=== PATIENT | female | born 1940 | race African-American/Black ===

== ENCOUNTER 2017-01-19 12:53 | Observation (INO) | payer MEDICARE ==
[~2017-01-19] VITALS: Ht 160 cm; Wt 84.1 kg
--- NOTE | ~2017-01-19 | HEMODYNAMI ---
PATIENT:MAURY SAMUELS MEDICAL RECORD: [id number] : 42 LOCATION:[facility].2116 ADMISSION DATE: 01/19/17 Generatedon:01/21/20178:30 Patient name: MAURY SAMUELS Patient #: [id number] SSN: DO B: 1940 Date of study: 01/21/2017 Page: Of Hemodynamic Procedure Report Patient Data Patient Demographics Procedure consent was obtained First Name: MAURY Gender: Female Last Name: ARVIND : 1940 Patient #: [id number] Age: 76 year(s) Race: Black Additional ID: [id number] Contact details Address: [address] [place] [address] State: [place] City: [facility] Zip code: [address] Past Medical History Allergies: No known allergies Admission Admission Data Admission Date: 01/19/2017 Admission Time: 14:52 Room #: D2116 Procedure Procedure Types Cath Procedure Diagnostic Procedure [facility] w/Coronaries Aortic Root Angiography Miscellaneous Procedures Moderate Sedation up to 15 minutes Procedure Description Procedure Date Procedure Date: 01/21/2017 Procedure Start Time: 8:09 Procedure End Time: 8:29 Procedure Staff Name Function Cain Paul MD Performing Physician Nadya Mckeon RN Nurse Malcolm Florence RT Monitor Braden Loza RT Scrub Procedure Data Cath Procedure Fluoroscopy Diagnostic fluoroscopy Total fluoroscopy Time: 4.3 time: 4.3 min min Diagnostic fluoroscopy Total fluoroscopy dose: 921 dose: 921 mGy mGy Contrast Material Contrast Material Type Amount (ml) Isovue 300 127 Entry Location Entry Primary Successful Side Size Upsize Upsize Entry Closure Succes sful Closure Location (Fr) 1 (Fr) 2 (Fr) Remarks Device Remarks Femoral Right 5 Fr Exoseal artery Estimated blood loss: 10 ml Diagnostic catheters Device Type Used For End Catheter Placement Cordis 5Fr JL 4.0 Procedure Catheter (MP) Cordis 5Fr 3DRC Catheter Procedure (MP) Diagnostic Infinity 5Fr Procedure AR 1 MOD catheter Cordis 5Fr Pigtail Procedure Catheter (MP) Procedure Complications No complications Procedure Medications Medication Administration Route Dosage Oxygen NC 2 l/min Heparin Flush Bag added to field 2 bags (1000units/500ml NS) Lidocaine 2% added to field 20 Versed I.V. 1 mg Fentanyl I.V. 50 mcg Hemodynamics Rest Heart Rate: 97 (bpm) Pressure Samples Time Site Value (mmHg) Purpose Heart Use Rate(bpm) 8:12 AO 89/49(70) Snapshot 26 8:21 LV 108/-15,4 Snapshot 87 8:22 AO 106/51(75) Pullback 88 8:22 LV 121/0,15 Pullback 88 Gradients Valve Time Site 1 Site 2 Mean SEP/DFP Peak To Heart Use (mmHg) (sec/min) Peak Rate (mmHg) (bpm) Aortic 8:22 LV AO 8 24 15 88 121/0,15 106/51(75) Calculations Valve P-P Mean Valve Index Valve Source Name Gradient Area Flow (cm2) Aortic 15 8 15 8 Snapshots Pre Cath Intra NCS Post Cath Vital Signs Time Heart Resp SPO2 etCO2 [id number] NIBP (mmHg) Rhythm Pain Sedation Rate (ipm) (%) (mmHg) (mmHg) Status Level (bpm) 7:52:34 99 19 94 0 0 119/79(107) NSR 0 (11) 10(A) , No pain 7:56:33 98 17 94 0 0 121/89(107) NSR 0 (11) 10(A) , No pain 8:00:31 95 16 96 0 0 127/91(114) NSR 0 (11) 10(A) , No pain 8:04:32 93 16 98 0 0 136/86(105) NSR 0 (11) 10(A) , No pain 8:08:42 92 23 100 0 0 104/73(87) NSR 0 (11) 9(A) , No pain 8:12:44 91 23 99 0 0 97/66(82) NSR 0 (11) 9(A) , No pain 8:16:42 92 18 99 0 0 90/70(84) NSR 0 (11) 9(A) , No pain 8:20:35 91 22 98 0 0 97/71(88) NSR 0 (11) 9(A) , No pain 8:24:33 85 15 96 0 0 110/70(89) NSR 0 (11) 9(A) , No pain 8:27:35 85 17 98 0 0 117/73(88) NSR 0 (11) 9(A) , No pain Medications Time Medication Route Dose Verified Delivered Reason Notes Effect iveness by by 8:01:35 Oxygen NC 2 Cain Nadya Per l/min Humberto Mckeon RN physician 8:01:45 Heparin Flush added 2 Cain Cain used for Bag to bags Humberto Paul MD procedure (1000units/500ml field NS) 8:01:53 Lidocaine 2% added 20ml Cain Cain used for to vial Humberto aPul MD procedure field 8:05:58 Versed I.V. 1 mg Cain Nadya for Humberto Mckeon RN sedation 8:06:08 Fentanyl I.V. 50 Cain Nadya for mcg Humberto Mckeon RN sedation Procedure Log Time Note 7:33:07 Leilani Counts RT(R) sent for patient. Start room use. 7:33:08 Time tracking: Regular hours 7:33:11 Plan of Care:Hemodynamics will remain stable., Cardiac rhythm will remain stable., Comfort level will be maintained., Respiratory function will remain adequate., Patient/ family verbilizes understanding of procedure., Procedure tolerated without complication., Recovers from procedure without complications.. 7:45:04 Patient received from Med II to CCL 1 Alert and oriented. Tansferred to table in Supine position. 7:45:05 Warm blankets applied, and alex hugger turned on for patient comfort. 7:45:05 Correct patient and procedure confirmed by team. 7:45:09 Signed procedure consent form obtained from patient. 7:45:11 ECG and BP/O2 sat monitors applied to patient. 7:51:26 Vital chart was started 7:51:27 Full Disclosure recording started 7:51:31 Rhythm: sinus rhythm 7:51:50 H&P Date Dictated: 01/20/2017 Within 30 days and on chart.. 7:51:52 Pre-procedure instructions explained to patient. 7:51:52 Pre-op teaching completed and patient verbalized understanding. 7:51:55 Family in patients room. 7:51:59 Patient NPO since Midnight. 7:52:07 Patient allergic to No known allergies 7:52:10 Is the patient allergic to Iodine/contrast media? No. 7:53:33 Is patient on blood thinner?No 7:53:39 ACC The patient was administered the following blood thiners within the last 24 hours: ACCHeparin 7:54:13 Patient diabetic? No. 7:54:20 Previous problem with sedation/anesthesia? No ? 7:54:22 Snore? Yes 7:54:34 Sleep apnea? No 7:54:36 Deviated septum? No 7:54:37 Opens mouth fully? Yes 7:54:38 Sticks out tongue? Yes 7:54:39 Airway obstruction? No ? 7:54:42 Dentures? Yes ? 7:54:59 Pre procedure: right dorsailis pedis pulse 1+ Palpable, but thready & weak; easily obliterated 7:55:00 PT HAS A RESERVE LEFT ARM 7:55:07 Patient pain scale 0/10 ?. 7:55:18 IV patent on arrival in right forearm with 0.9% NaCl at KVO. 7:55:30 Heparin Dc'd upon arrival to the Health Care Technician. 7:57:07 Lab results completed and on chart. 7:57:10 Right groin area was prepped with chlora-prep and draped in sterile fashion 7:57:15 Alarms reviewed by R. N. 7:57:16 Sharps counted by scrub and verified by R.N. 7:57:24 Use device set Femoral Dx 7:57:25 Acist Syringe opened to sterile field. 7:57:26 Bag Decanter opened to sterile field. 7:57:26 Medline Cath Pack opened to sterile field. 7:57:28 Acist Hand Control opened to sterile field. 7:57:28 Acist Manifold opened to sterile field. 7:57:30 Tegaderm 4 x 4 opened to sterile field. 7:59:49 Baseline sample Acquired. 8:01:35 Oxygen 2 l/min NC was administered by Nadya Mckeon RN; Per physician; 8:01:45 Heparin Flush Bag (1000units/500ml NS) 2 bags added to field was administered by Cain Paul MD; used for procedure; 8:01:53 Lidocaine 2% 20ml vial added to field was administered by Cain Paul MD; used for procedure; 8:04:11 --------ALL STOP TIME OUT------ 8:04:12 Final Timeout: patient, procedure, and site verified with staff and physician. All members of the team are in agreement. 8:04:14 Right groin site verified by team. 8:04:18 Physical assessment completed. ASA score P 2 - A patient with mild systemic disease as per Cain Paul MD. 8:04:21 Sedation plan: IV Moderate Sedation Versed, Fentanyl 8:05:58 Versed 1 mg I.V. was administered by Nadya Mckeon RN; for sedation; 8:06:05 Terumo 5Fr Carriere Sheath opened to sterile field. 8:06:07 St Chirag 260cm J .035 wire opened to sterile field. 8:06:08 Fentanyl 50 mcg I.V. was administered by Nadya Mckeon RN; for sedation; 8:06:08 Diagnostic Infinity 5Fr Multipack catheter opened to sterile field. 8:09:19 Zero performed for pressure channel P1 8:09:21 Zero performed for pressure channel P1 8:09:24 Zero performed for pressure channel P1 8:09:29 Procedure started. 8:09:32 Local anesthetic to right femoral artery with Lidocaine 2% by Cain Paul MD.INITIAL ACCESS ONLY 8:11:45 A 5 Fr sheath was inserted into the Right Femoral artery 8:12:15 A Cordis 5Fr JL 4.0 Catheter (MP) was advanced over the wire and used for Procedure. 8:12:39 LCA angiography performed. 8:14:17 Catheter exchanged over wire. 8:14:27 A Cordis 5Fr 3DRC Catheter (MP) was advanced over the wire and used for Procedure. 8:17:06 Catheter exchanged over wire. 8:17:24 A Diagnostic Infinity 5Fr AR 1 MOD catheter was advanced over the wire and used for Procedure. 8:18:57 RCA angiography performed. 8:19:22 Catheter exchanged over wire. 8:19:42 A Cordis 5Fr Pigtail Catheter (MP) was advanced over the wire and used for Procedure. 8:21:39 LV angiography performed. 8:21:50 LV gram done using RIVERA 8:21:59 EF : 55 % 8:22:01 LV hemodynamics recorded. 8:22:04 Injector settings: Ml/sec: 10, Volume: 20, 8:22:43 Aortic Root visualized 8:22:47 Injector settings: Ml/sec: 15, Volume: 30, 8:24:30 Catheter removed. 8:24:40 Cordis 5Fr Exoseal opened to sterile field. 8:24:53 Sheath removed intact; hemostasis achieved with Exoseal to the Right Femoral artery. 8:24:55 Procedure ended.(Physican Out) 8:25:08 Fluoroscopy time 04.30 minutes. 8:25:12 Fluoroscopy dose: 921 mGy 8:25:12 Flurop Dose total: 921 8:25:18 Contrast amount:Isovue 300 127ml. 8:25:21 Sharps counted by scrub and verified by R.N. 8:25:25 Insertion/operative site no bleeding no hematoma. 8:25:38 Post-op/insertion site Right Femoral artery dressed using a 4 x 4 and Tegaderm. 8:25:40 Post Procedure Pulses reassessed and unchanged 8:25:46 Post-procedure physical assessment completed. ASA score P 2 - A patient with mild systemic disease as per Cain Paul MD. 8:25:50 Post procedure rhythm: unchanged. 8:25:53 Estimated blood loss: 10 ml 8:26:03 Post procedure instruction explained to patient.Patient verbalizes understanding. 8:26:04 Patient needs reinforcement of post procedure teaching. 8:26:41 Procedure type changed to Cath procedure, Diagnostic procedure, LHC, LHC w/Coronaries, Aortic Root Angiography, Miscellaneous Procedures, Moderate Sedation up to 15 minutes 8:26:46 Procedure Complication : No complications 8:27:13 Procedure and supply charges have been captured, reviewed, submitted and are correct. 8:29:23 Vital chart was stopped 8:29:24 See physician's report for complete and final results. 8:29:28 Report given to PCU. 8:29:46 Patient transfered to PCU with Bed. 8:29:52 Procedure ended. 8:29:52 Full Disclosure recording stopped 8:29:56 End room use (Document Last) Device Usage Item Name Manufacture Quantity Catalog Hospital Part Current Minimal Lo t# / Number Charge Number Stock Stock Serial# Code Acist Acist 1 17962 735205 378329 902624 20 GL 2ours Inc Bag Microtek 1 2002S 673115 40751 904159 5 [employer] Inc. Medline Cardinal 1 [id number] 903025 44850 705938 5 Cath Pack Health Acist Hand Acist 1 40589 495785 806219 245706 5 Control Medical Systems Inc Acist Acist 1 99776 347625 867675 567666 5 Manifold Medical Systems Inc Tegaderm 4 3M 1 1626W 049437 911708 932141 5 x 4 Terumo 5Fr Terumo 1 [id number] 114234 563449 864350 [address] Chirag 1 318575 616012 581596 995001 30 260cm J .035 wire Diagnostic Cardinal 1 QU4256 551342 58937 575376 30 Infinity Health 5Fr Multipack catheter Cordis 5Fr Cardinal 1 915298 5 JL 4.0 Health Catheter (MP) Cordis 5Fr Cardinal 1 140811 5 3DRC Health Catheter (MP) Diagnostic Cardinal 1 [id number] 369043 366600 040703 15 Infinity Health 5Fr AR 1 MOD catheter Cordis 5Fr Cardinal 1 099966 5 Pigtail Health Catheter (MP) Cordis 5Fr Cardinal 1 EX500 676280 763187 9[address]10 10 Dr[address] TATTOFF Signature Audit [place] Stage Time Signature Unsigned Intra-Procedure 01/21/2017 Malcolm Florence 8:30:14 AM RT(R) Signatures Monitor : Malcolm Florence RT Signature : Date : Time : [address] [place] [address]
[~2017-01-19 12:53] MED LIST: CALAN SR240 MG PO; VITAMIN D3400 UNI1 PO; VOLTAREN75 MG PO
[2017-01-19 13:39] LABS: BASOPHILS 0.3 % (0-2); EOSINOPHILS 0.7 % (0-7); HEMATOCRIT 41.6 % (36.0-48.0); HEMOGLOBIN 13.9 g/dL (12-16); IMMATURE GRANULOCYTES 0.3 % (0-5); LYMPHOCYTES 15.1 % (15-50); MCH 29.4 pg (26.0-34.0); MCHC 33.4 g/dL (31.0-37.0); MCV 87.9 fL (80.0-100.0); MONOCYTES 5.3 % (2-11); NEUTROPHILS 78.3 % (40-80); PLATELET COUNT 271 10x3/uL (130-400); RBC 4.73 10x6/uL (4.00-5.40); RDW 14.5 % (11.5-14.5); WBC 7.2 10x3/uL (4.8-10.8)
[2017-01-19 13:55] LABS: ALBUMIN 3.7 g/dL (3.4-5.0); ALKALINE PHOSPHATASE 99 U/L (46-116); ALT (SGPT) 23 U/L (10-68); BILIRUBIN - TOTAL 0.43 mg/dL (0.2-1.3); CALC OSMOLALITY 281 mosm/kg (275-300); CALCIUM 9.5 mg/dL (8.5-10.1); CARBON DIOXIDE 30.3 mmol/L (21.0-32.0); CHLORIDE - SERUM 103 mmol/L (98-107); GLUCOSE 132 mg/dL (74-106); POTASSIUM - SERUM 3.9 mmol/L (3.5-5.1); PROTEIN - SERUM 8.4 g/dL (6.4-8.2); SODIUM 140 mmol/L (136-145); UREA NITROGEN 14 mg/dL (7-18); eGFR NON AFRICAN AMERICAN 57 mL/min (90-120)
[2017-01-19 14:06] LABS: CHOL - HDL RATIO 4.2 ratio (2.3-4.1); CHOLESTEROL, TOTAL 241 mg/dL (0-200); CKMB 2.8 U/L (0.0-3.6); CREATINE KINASE 224 UL (21-215); HDL CHOLESTEROL 57 mg/dL (32-96); LDL CHOLESTEROL 167 mg/dL (0-100); LDL-HDL RATIO 2.9 ratio (1.5-3.5); TRIGLYCERIDE 86 mg/dL (30-200)
[2017-01-19 14:09] LABS: MAGNESIUM - SERUM 1.9 mg/dL (1.8-2.4)
[2017-01-19 15:32] LABS: TROPONIN-I 0.132 ng/mL (0.000-0.060)
--- NOTE | 2017-01-19 17:10 | NUR ---
TRANSFER FROM ER BY STRETCHER. OREINTED TO ROOM. CALL LIGHT IN REACH. WILL CONT. PLAN OF CARE.
[2017-01-19 17:23] VITALS: BP 141/85; BP 189/87; Ht 160 cm; Wt 84.1 kg
[2017-01-19 20:00] VITALS: BP 158/79
[2017-01-19 22:21] LABS: CKMB 35.8 U/L (0.0-3.6)
[2017-01-19 22:25] LABS: CREATINE KINASE 529 UL (21-215); TROPONIN-I 2.274 ng/mL (0.000-0.060)
[2017-01-20] VITALS: BP 151/88
[2017-01-20 04:43] LABS: CKMB 68.5 U/L (0.0-3.6)
[2017-01-20 05:04] LABS: CREATINE KINASE 899 UL (21-215); TROPONIN-I 5.029 ng/mL (0.000-0.060)
[2017-01-20 06:55] LABS: BASOPHILS 0.4 % (0-2); EOSINOPHILS 1.3 % (0-7); HEMATOCRIT 41.5 % (36.0-48.0); HEMOGLOBIN 13.6 g/dL (12-16); IMMATURE GRANULOCYTES 0.2 % (0-5); MCH 28.9 pg (26.0-34.0); MCHC 32.8 g/dL (31.0-37.0); MCV 88.3 fL (80.0-100.0); MEAN PLATELET VOLUME 10.9 fL (7.4-10.4); MONOCYTES 7.9 % (2-11); NEUTROPHILS 68.2 % (40-80); PLATELET COUNT 256 10x3/uL (130-400); RDW 14.7 % (11.5-14.5); WBC 8.2 10x3/uL (4.8-10.8)
[2017-01-20 07:02] LABS: APTT 24.2 SECONDS (22.8-39.4); INR 1.01 (0.85-1.17); PROTIME 13.2 SECONDS (11.6-15.0)
[2017-01-20 07:14] LABS: ANION GAP 12.7 mmol/L (8-16); CALCIUM 9.3 mg/dL (8.5-10.1); CARBON DIOXIDE 28.3 mmol/L (21.0-32.0); CREATININE - SERUM 0.9 mg/dL (0.6-1.3)
[2017-01-20 08:00] VITALS: BP 162/76
--- NOTE | 2017-01-20 09:34 | NUR ---
TELEMETRY SR. HEPRIN GTT INFUSING. CALL LIGHT IN REACH. WILL CONT. PLAN OF CARE.
--- NOTE | 2017-01-20 09:50 | NUR ---
CONSENTS SIGNED FOR [facility].
--- NOTE | 2017-01-20 14:20 | NUR ---
HEPRIN GTT STOPPED X 30 MIN AND RESTARTED AT 800 UNITS/HR.
[2017-01-20 16:00] VITALS: BP 173/95
--- NOTE | 2017-01-20 19:21 | NUR ---
PT C/O CHEST PAIN/PRESSURE - NOTED THAT PT DID NOT RECEIVE HER NTG PATCH THIS AM. NTG PATCH APPLIED AT THIS TIME AND WILL RE-EVALUATE HER PAIN
--- NOTE | 2017-01-20 20:55 | NUR ---
PTT RESULTS - 74. NO CHNAGE MADE PER HEPARIN NOMOGRAM. NEXT PTT DUE AT 0600. PT DOES C/O HEADACHE. RELATES NO FURTHER CHEST PAIN. TYLENOL 650 MG PO TO BE GIVEN. WILL MONITOR.
[2017-01-20 22:11] VITALS: BP 160/94
[2017-01-21 00:52] VITALS: BP 147/109
[2017-01-21 04:38] VITALS: BP 146/96
[2017-01-21 06:19] LABS: HEMATOCRIT 41.6 % (36.0-48.0); HEMOGLOBIN 13.8 g/dL (12-16); MCH 29.1 pg (26.0-34.0); MCHC 33.2 g/dL (31.0-37.0); MCV 87.8 fL (80.0-100.0); MEAN PLATELET VOLUME 11.5 fL (7.4-10.4); RBC 4.74 10x6/uL (4.00-5.40); RDW 14.5 % (11.5-14.5)
[2017-01-21] MEDS ORDERED: ISOSORBIDE MONO30 M1 PO (11:45)
[2017-01-21] MEDS ORDERED: PRAVACHOL20 MG PO (11:59)
--- NOTE | 2017-01-21 14:00 | NUR ---
REVIEWED DISCHARGE INSTRUCTIONS WITH PT AND BOTH STATE UNDERSTANDING COPY GIVEN SALINE LOCK TO RAC DCD WITH IV CATHETER INTACT SITE WNL DCD HOME IN STABLE CONDITION VIA W/C WITH ALL PERSONAL BELONGINGS
--- NOTE | 2017-01-24 10:59 | OP ---
PATIENT NAME: MAURY SAMUELS MEDICAL RECORD: [id number] :42 LOCATION:[facility]2116 ADMISSION DATE:01/19/17 SURGEON: DAVI MOORE M.D. DATE OF OPERATION: 01/21/2017 PROCEDURES PERFORMED: 1. Selective coronary angiography. 2. Left heart catheterization with ventriculogram. 3. Aortic root injection. 4. Left heart catheterization with ventriculogram. INDICATION: A 76-year-old woman, who presents with symptoms of chest discomfort and positive cardiac enzymes. EQUIPMENT USED: A 5-American JL4, Jose right, pigtail catheter. TECHNIQUE: A 5-American sheath was inserted in retrograde fashion in the right common femoral artery. Next, selective coronary angiography was performed in standard 5-American JL4 and Jose right. Left heart catheterization was performed using pigtail catheter. A pigtail catheter was then pulled back in the ascending aorta to visualize the aortic root. CORONARY ANATOMY: 1. Left main: Left main trunk is a quite large in caliber. There appears to be an 89 mm vessel. It has no obstruction. 2. LAD: This vessel is large in caliber. It appears to be ectatic in the proximal segment. Again, representing a 6-7 mm vessel. The midvessel is more moderate caliber around 3 mm in diameter. It is a smooth-walled vessel and angiographically normal. 3. Circumflex: This vessel is moderate in caliber. It is a smooth-walled vessel and angiographically normal. 4. Right coronary: This vessel actually arises alow in the right coronary sinus. It is quite large and ectatic. It appears to be 8 mm in diameter. It is a smooth-walled and has no obstruction. It is angiographically normal. It does provide a large PDA and posterolateral branch in distal segment. 5. Left ventricle: Left ventricle appears normal in size and function. No wall motion abnormalities are seen. Its ejection fraction is 55% to 60%. 6. Ascending aorta. The ascending aorta appears to be dilated from the sinus of Valsalva up to the great vessels. The aorta appears to be at least 4 cm. I do not see any aortic insufficiency. There is no aortic stenosis. IMPRESSION: 1. Normal coronary arteries, although they are quite ectatic and large. There is no evidence of any thrombus or obstruction. 2. Normal left ventricular function. RECOMMENDATIONS: I am not sure why troponin and CK are elevated. Her ejection fraction was normal and coronary arteries are normal as well. Clinically, she does not appear to have myocarditis. I am not sure if she is having some component of vasospasm or vessels. We will likely start her on nitrates in addition to her calcium blockers. TRANSINT:[id number] Voice Confirmation ID: [id number] DOCUMENT ID: [id number] OPERATIVE REPORT [id number] MAURY SAMUELS TIMOTHY E M.D. at 1059 CC: [id number] DICTATION DATE: 01/21/17 08 OCCUPANCY SPECIALIST: 01/21/17 0932 DIS IN 01/21/17 [facility] [address] [place] [address]
--- NOTE | 2017-01-24 10:59 | EC ---
PATIENT:MAURY SAMUELS DATE OF SERVICE: 01/19/17 SEX: F MEDICAL RECORD: [id number] DATE OF : 42 LOCATION:D. D.211 AGE OF PATIENT: 76 ADMISSION DATE: 01/19/17 REFERRING PHYSICIAN: INTERPRETING PHYSICIAN: DAVI PAUL M.D. ECHOCARDIOGRAM REPORT ECHO CHARGES 4 ECHO COMPLETE CLINICAL DIAGNOSIS: NON Q [place] ECHOCARDIOGRAPHIC MEASUREMENTS (adult normal given) AC root (d.<3.7cm) 2.7 LV Septum d (<1.2 cm> 1.7 Valve Excursion 1.5 LV Septum (systole) 1.9 Left Atria (s.<4.0cm> 3.0 LVPW d(<1.2cm) 1.6 RV (d.<2.3cm) 3.1 LVPW (sytole) 1.7 LV diastole(<5.6CM) 3.8 MV E-F(>70mm/sec) LV systole 2.5 LVOT Diameter 1.7 MV exc.(>10mm) 1.1 Est.ejection fraction (50-75%) Pericardial Effusion N DOPPLER: LVIT A 73.0 E 43.0 LA RVSP 25 LVOT 92 AOP1/2T Asc. Ao 153 RVOT 95 RA PA 109 AV Gradient Peak 9.41 AV Mean 5.15 AV Area 1.4 MV Gradient Peak 3.55 MV Mean 1.01 MV Area COMMENTS: Cross Country Coach: Fritz GEE Hamper Maker Machine:2 Dr. Paul TAPE# PACS DATE OF SERVICE: 01/20/2017 INDICATION: Non-Q-wave myocardial infarction. DESCRIPTION: Left ventricle demonstrates left ventricular hypertrophy. No regional wall motion abnormalities are noted. Estimated ejection fraction is in the order of 50%-55%. Mitral valve is structurally normal. There is no regurgitation or prolapse seen. Left atrium appears normal in size. The aortic valve is trileaflet. There is no stenosis or regurgitation seen. Right ventricle is mildly dilated. Tricuspid valve is structurally normal. There is ECHOCARDIOGRAM REPORT [id number] MAURY SAMUELS mild regurgitation noted. Right atrium is normal size. There is no pericardial effusion seen. IMPRESSION: 1. Left ventricular hypertrophy with preserved ejection fraction of 50%. 2. Mild tricuspid regurgitation. TRANSINT:[id number] Voice Confirmation ID: [id number] DOCUMENT ID: [id number] DAVI PAUL M.D. at 1059 CC: [id number] DICTATION DATE: 01/21/17640 COLLEGE DIRECTOR: 01/21/17 0845 DIS IN 01/21/17 [facility] [address] [id number]
== END 2017-01-21 14:00 | disposition home or self-care (01) ==
LOC: D.ER 12:53 → D.M2 14:52 → OBSVTIME 14:52 → D.M2 14:52
PROVIDERS: Emergency Medicine; ADMIT Internal Medicine Cardiovascular Disease
DX: I21.4 Non-ST elevation (NSTEMI) myocardial infarction (principal); I10 Essential (primary) hypertension

== ENCOUNTER → 2018-03-19 08:58 | Outpatient (CLI) | payer MEDICARE ==
[2017-01-19 17:23] VITALS: BMI 32.8
[~2018-03-19 08:58] MED LIST changes: +ISOSORBIDE MONO30 M1 PO; +PRAVACHOL20 MG PO
== END | disposition home or self-care (01) ==
LOC: D.MRI 08:58
DX: M54.5 Low back pain (principal)

== ENCOUNTER → 2019-01-28 10:57 | Outpatient (CLI) | payer MEDICARE ==
[2017-01-19 17:23] VITALS: BMI 32.8
== END | disposition home or self-care (01) ==
LOC: D.HCCARDIO 01-02 10:00
PROVIDERS: ATTEND Internal Medicine Cardiovascular Disease
DX: I25.10 Atherosclerotic heart disease of native coronary artery without angina pectoris (principal)

== ENCOUNTER → 2021-01-10 08:45 | Outpatient (CLI) | payer MEDICARE, MEDICAID ==
[2017-01-19 17:23] VITALS: BMI 32.8
== END | disposition home or self-care (01) ==
LOC: D.HCCARDIO 08:45
PROVIDERS: ATTEND Internal Medicine Cardiovascular Disease
DX: I20.9 Angina pectoris, unspecified (principal)

== ENCOUNTER 2021-01-30 12:05 | Day surgery (SDC) | payer MEDICARE, MEDICAID ==
[~2021-01-30] VITALS: Ht 160 cm; Wt 71.6 kg
--- NOTE | ~2021-01-30 | HEMODYNAMI ---
PATIENT:MAURY SAMUELS MEDICAL RECORD: [id number] : 42 LOCATION:DPONCE ADMISSION DATE: 01/30/21 Generatedon:114:43 Patient name: MAURY SAMUELS Patient #: [id number] SSN: [id number] : 1940 Date of study: 01/30/2021 Page: Of Hemodynamic Procedure Report Patient Data Patient Demographics Procedure consent was obtained First Name: MAURY Gender: Female Last Name: ARVIND : 1940 Patient #: [id number] Age: 80 year(s) Race: Black SSN: [id number] Additional ID: [id number] Contact details Address: [address] [place] [address] State: [place] City: [facility] Zip code: [address] Past Medical History Allergies: No known allergies Admission Admission Data Admission Date: 01/30/2021 Admission Time: 12:05 Arrival Date: 01/30/2021 Arrival Time: 0:00 Admit Source: Other Insurance Payor: Private health insurance [facility] #: [id number] Height (in.): 63 BSA: 1.75 (m2) Height (cm.): 160.02 BMI: 27.97 (kg/m2) Weight (lbs.): 157.92 Weight (kg.): 71.63 Procedure Procedure Types Cath Procedure Diagnostic Procedure C [facility] w/Coronaries Sedation Charges Moderate Sedation 10-24 minutes Procedure Description Procedure Date Procedure Date: 01/30/2021 Procedure Start Time: 14:16 Procedure End Time: 14:41 Procedure Staff Name Function Cain Paul MD Performing Physician Leilani Brennan RT Monitor Mary Escobar RT Scrub April Oliver RN Nurse Robert Quiroz RN Nurse Procedure Data Cath Procedure Fluoroscopy Diagnostic fluoroscopy Total fluoroscopy Time: 7.6 time: 7.6 min min Diagnostic fluoroscopy Total fluoroscopy dose: 723 dose: 723 mGy mGy Contrast Material Contrast Material Type Amount (ml) Isovue 300 131 Entry Location Entry Primary Successful Side Size Upsize Upsize Entry Closure Succes sful Closure Location (Fr) 1 (Fr) 2 (Fr) Remarks Device Remarks Femoral Right 5 Fr Exoseal artery Estimated blood loss: 5 ml Diagnostic catheters Device Type Used For End Catheter Placement MULTIPACK JL 4.0 5Fr Left Coronary catheter Angiography DIAGNOSTIC JL 5 5Fr Left Coronary catheter ([id number]) Angiography MULTIPACK 3DRC 5Fr Right Coronary catheter Angiography DIAGNOSTIC MPA-2 5Fr Right Coronary catheter ([id number]) Angiography DIAGNOSTIC AR2 MOD 5 Fr Right Coronary catheter ([id number]) Angiography MULTIPACK Pigtail 5 Fr LV Angiography catheter Procedure Complications No complications Procedure Medications Medication Administration Route Dosage 0.9% NaCl I.V. 100 ml/hr Heparin Flush Bag added to field 2 bags (1000units/500ml NS) Oxygen etCO2 Nasal cannula 2 l/min Lidocaine 2% added to field 20 Fentanyl I.V. 50 mcg Versed I.V. 1 mg Versed I.V. 0.5 mg Fentanyl I.V. 25 mcg Versed I.V. 0.5 mg Fentanyl I.V. 25 mcg Hemodynamics Rest BSA: 1.75 (m2) O2 Consumption: Estimated: 176.04 (ml/min) O2 Consumption indexed : Estimated:100.59 (ml/min/m) Heart Rate: 98 (bpm) Pressure Samples Time Site Value (mmHg) Purpose Heart Use Rate(bpm) 14:26 AO 172/115(141) Snapshot 98 14:37 LV 158/10,35 Snapshot 88 Gradients Valve Time Site Site Mean SEP/DFP Peak To Heart Use 1 2 (mmHg) (sec/min) Peak Rate (mmHg) (bpm) Aortic 14:37 LV AO 95 Snapshots Pre Cath Intra NCS Post Cath Vital Signs Time Heart Resp SPO2 etCO2 NIBP (mmHg) Rhythm Pain Sedation Rate (ipm) (%) (mmHg) Status Level (bpm) 14:05:30 100 14 98 14.3 160/122(137) NSR 0 (11) 10(A) , No pain 14:09:54 100 27 98 13.5 151/119(134) NSR 0 (11) 10(A) , No pain 14:14:12 97 19 99 27 145/109(121) NSR 0 (11) 10(A) , No pain 14:18:30 97 15 100 21 154/109(133) NSR 0 (11) 9(A) , No pain 14:22:52 94 20 99 15.8 151/104(123) NSR 0 (11) 9(A) , No pain 14:27:13 96 14 95 32.3 157/101(136) NSR 0 (11) 9(A) , No pain 14:31:35 97 13 95 32.3 156/102(137) NSR 0 (11) 9(A) , No pain 14:35:49 99 14 96 33 154/103(140) NSR 0 (11) 9(A) , No pain 14:40:09 98 15 100 24.8 148/105(129) NSR 0 (11) 10(A) , No pain Medications Time Medication Route Dose Verified Delivered Reason Notes Eff ectiveness by by 13:21:27 0.9% NaCl I.V. 100 Cain Robert used for ml/hr Humberto Qurioz pay per click strategist 13:21:37 Heparin Flush added 2 Cain Cain used for Bag to bags Humberto Paul MD procedure (1000units/500ml field NS) 13:21:49 Oxygen etCO2 2 Cain Robert used for Nasal l/min Humberto Quiroz pay per click strategist cannula 13:22:00 Lidocaine 2% added 20ml Cain Cain for local to vial Humberto Paul MD anesthetic field 14:14:14 Fentanyl I.V. 50 Cain Robert for mcg Humberto Quiroz RN sedation 14:14:21 Versed I.V. 1 mg Cain Robert for Humberto Quiroz RN sedation 14:16:37 Versed I.V. 0.5 Cain Robert for mg Humberto Quiroz RN sedation 14:16:41 Fentanyl I.V. 25 Cain Robert for mcg Humberto Quiroz RN sedation 14:19:46 Versed I.V. 0.5 Cain Robert for mg Humberto Quiroz RN sedation 14:19:51 Fentanyl I.V. 25 Cain Robert for mcg Humberto Quiroz RN sedation Procedure Log Time Note 13:13:16 Informed consent obtained and on chart 13:13:34 Diagnostic Cath Status : Elective 13:13:54 Arrival Date: 01/30/2021 12:00:00 AM 13:13:54 Admit Source: Other 13:14:01 Insurance Payor : Private health insurance 13:14:14 ACC Patient presents with Stable Angina CCS Anginal Class 2--Slight limitation of ordinary activity. 13:14:17 Procedure Status Elective Heart Cath (OP). 13:14:20 Time tracking: Regular hours (M-F 7:00 - 5:00) 13:14:25 Plan of Care:Hemodynamics will remain stable., Cardiac rhythm will remain stable., Comfort level will be maintained., Respiratory function will remain adequate., Patient/ family verbilizes understanding of procedure., Procedure tolerated without complication., Recovers from procedure without complications.. 13:14:34 H&P Date Dictated: 01/25/2021 Within 30 days and on chart.. 13:15:18 Stress Test: yes; abnormal MULTIVESSEL 13:15:19 Alarms reviewed by R. N. 13:15:20 Sharps counted by scrub and verified by R.N. 13:21:27 0.9% NaCl 100 ml/hr I.V. was administered by Robert Quiroz RN; used for procedure; Verbal order read back and verified. 13:21:37 Heparin Flush Bag (1000units/500ml NS) 2 bags added to field was administered by Cain Paul MD; used for procedure; Verbal order read back and verified. 13:21:49 Oxygen 2 l/min etCO2 Nasal cannula was administered by Robert Quiroz RN; used for procedure; Verbal order read back and verified. 13:22:00 Lidocaine 2% 20ml vial added to field was administered by Cain Paul MD; for local anesthetic; Verbal order read back and verified. 13:22:56 Patient Height : 63 inches 13:23:04 Patient Weight : 157.92 lbs 13:53:00 Robert Quiroz RN sent for patient. Start room use. 13:56:59 Patient received from Pre/Post Procedure Room to CCL 1 Alert and oriented. Tansferred to table in Supine position. 13:57:00 Warm blankets applied, and alex hugger turned on for patient comfort. 13:57:01 Correct patient and procedure confirmed by team. 13:57:01 ECG and BP/O2 sat monitors applied to patient. 13:57:03 Full Disclosure recording started 14:04:11 Vital chart was started 14:06:25 Rhythm: sinus rhythm 14:06:30 Pre-procedure instructions explained to patient. 14:06:30 Pre-op teaching completed and patient verbalized understanding. 14:06:33 Family in patients room. 14:06:35 Patient NPO since Midnight. 14:06:44 Patient allergic to No known allergies 14:06:48 Is the patient allergic to Iodine/contrast media? No. 14:06:50 Is patient on blood thinner?No 14:06:55 ACC The patient was administered the following blood thiners within the last 24 hours: None 14:06:58 Patient diabetic? No. 14:07:01 Previous problem with sedation/anesthesia? No ? 14:07:02 Snore? Yes 14:07:03 Sleep apnea? No 14:07:04 Deviated septum? No 14:07:05 Opens mouth fully? Yes 14:07:05 Sticks out tongue? Yes 14:07:07 Airway obstruction? No ? 14:07:09 Dentures? Yes upper 14:07:33 Pre procedure: right dorsailis pedis pulse 2+ Normal; easily identifiable; not easily obliterated 14:07:37 Patient pain scale 9/10 LOW BACK PAIN. 14:08:53 IV patent on arrival in right forearm with 0.9% NaCl at [facility]. 14:12:12 Risk of Mortality: 0.3 14:12:15 Risk of blood transfusion: 0.7 14:12:18 Risk of JASBIR: 2.6 14:12:20 Right groin area was prepped with chlora-prep and draped in sterile fashion 14:12:23 Physician arrived 14:12:26 Use device set Femoral Dx 14:12:26 ACIST Syringe (21058) opened to sterile field. 14:12:27 Bag Decanter (2002S) opened to sterile field. 14:12:27 Medline Cath Pack ([id number]) opened to sterile field. 14:12:28 ACIST Hand Control (32449) opened to sterile field. 14:12:29 ACIST Manifold (21171) opened to sterile field. 14:12:30 DIAGNOSTIC Multipack 5Fr catheter set ([id number]) opened to sterile field. 14:12:31 EMERALD Guide Wire (502-869) opened to sterile field. 14:12:32 SHEATH 5FR [place] ([id number]) opened to sterile field. 14:13:26 Baseline sample Acquired. 14:13:47 Final Timeout: patient, procedure, and site verified with staff and physician. All members of the team are in agreement. 14:13:48 Right groin site verified by team. 14:13:51 Fire Safety Assessment: A--An alcohol-based skin anteseptic being used preoperatively., C--Open oxygen or nitrous oxide is being used., D--An ESU, laser, or fiber-optic light is being used. 14:13:54 Physical assessment completed. ASA score P 2 - A patient with mild systemic disease as per Cain Paul MD. 14:13:59 2) 60-89 Mildly reduced kidney function, and other findings (as for stage 1) point to kidney disease. 14:14:02 Maximum allowable contrast dose (3.7 X eGFR X 0.75)191 ml. 14:14:06 Sedation plan: IV Moderate Sedation Medication:Versed, Fentanyl 14:14:14 Fentanyl 50 mcg I.V. was administered by Robert Quiroz RN; for sedation; Verbal order read back and verified. 14:14:21 Versed 1 mg I.V. was administered by Robert Quiroz RN; for sedation; Verbal order read back and verified. 14:16:37 Versed 0.5 mg I.V. was administered by Robert Quiroz RN; for sedation; Verbal order read back and verified. 14:16:41 Fentanyl 25 mcg I.V. was administered by Robert Quiroz RN; for sedation; Verbal order read back and verified. 14:16:43 Procedure started. 14:16:46 Local anesthetic to right femoral artery with Lidocaine 2% by Cain Paul MD.INITIAL ACCESS ONLY 14:19:46 Versed 0.5 mg I.V. was administered by Robert Quiroz RN; for sedation; Verbal order read back and verified. 14:19:51 Fentanyl 25 mcg I.V. was administered by Robert Quiroz RN; for sedation; Verbal order read back and verified. 14:20:55 A 5 Fr sheath was inserted into the Right Femoral artery 14:22:39 A MULTIPACK JL 4.0 5Fr catheter was advanced over the wire and used for Left Coronary Angiography. 14:23:26 Catheter removed. 14:24:21 A DIAGNOSTIC JL 5 5Fr catheter ([id number]) was advanced over the wire and used for Left Coronary Angiography. 14:26:01 Catheter removed. 14:26:19 A MULTIPACK 3DRC 5Fr catheter was advanced over the wire and used for Right Coronary Angiography. REMOVED; UNABLE TO CANNULATE 14:28:35 Catheter removed. 14:29:33 A DIAGNOSTIC MPA-2 5Fr catheter ([id number]) was advanced over the wire and used for Right Coronary Angiography.REMOVED; UNABLE TO CANNULATE 14:31:51 Catheter removed. 14:33:43 A DIAGNOSTIC AR2 MOD 5 Fr catheter ([id number]) was advanced over the wire and used for Right Coronary Angiography. 14:35:29 Catheter removed. 14:36:00 A MULTIPACK Pigtail 5 Fr catheter was advanced over the wire and used for LV Angiography. 14:37:29 LV gram done using RIVERA 14:37:33 EF : 25 % 14:37:43 LV hemodynamics recorded. 14:37:45 Injector settings: Ml/sec: 10, Volume: 20, 14:37:46 Catheter removed. 14:37:48 Tegaderm 4 x 4 (1626W) opened to sterile field. 14:37:52 EXOSEAL 5Fr (EX500) opened to sterile field. 14:38:01 Sheath removed intact; hemostasis achieved with Exoseal to the Right Femoral artery. 14:38:03 Procedure ended.(Physican Out) 14:38:15 Fluoroscopy time 07.60 minutes. 14:38:20 Flurop Dose total: 723 14:38:20 Fluoroscopy dose: 723 mGy 14:38:24 Dose Area Product 20.3 mGy/cm. 14:38:33 Contrast amount:Isovue 300 131ml. 14:38:35 Maximum allowable dose exceeded? No. 14:38:37 Sharps counted by scrub and verified by R.N. 14:38:39 Insertion/operative site no bleeding no hematoma. 14:38:41 Post-op/insertion site Right Femoral artery dressed using a 4 x 4 and Tegaderm. 14:38:44 Post right femoral artery:stable, clean and dry 14:38:46 Post Procedure Pulses reassessed and unchanged 14:38:48 Post-procedure physical assessment completed. ASA score P 2 - A patient with mild systemic disease as per Cain Paul MD. 14:38:50 Post procedure rhythm: unchanged. 14:38:53 Estimated blood loss: 5 ml 14:39:01 Post procedure instruction explained to patient.Patient verbalizes understanding. 14:39:02 Patient needs reinforcement of post procedure teaching. 14:39:30 Procedure type changed to Cath procedure, Diagnostic procedure, LHC, LHC w/Coronaries, Sedation Charges, Moderate Sedation 10-24 minutes 14:39:37 Procedure Complication : No complications 14:39:52 Procedure and supply charges have been captured, reviewed, submitted and are correct. 14:39:56 Operative report dictated upon procedure completion. 14:39:56 See physician's report for complete and final results. 14:39:58 Report given to Pre/Post Procedure Room. 14:41:42 Vital chart was stopped 14:41:46 Patient transfered to Pre/Post Procedure Room with Stretcher. 14:41:48 Procedure ended. 14:41:48 Full Disclosure recording stopped 14:42:57 Leilani Counts RT(R) was relieved by Leilani Counts RT(R) as monitoring person 14:43:19 Leilani Counts RT(R) was relieved by Leilani Counts RT(R) as monitoring person Device Usage Item Name Manufacture Quantity Catalog Hospital Part Current Minimal L ot# / Number Charge Number Stock Stock Serial# Code ACIST Acist 1 41554 738676 004343 620121 20 Syringe Medical (61500) Systems Inc Bag Microtek 1 2001S 964482 11606 839084 5 Decanter Medical Inc. () Medline Medline 1 [id number] 617867 66462 101418 5 Cath Pack ([id number]) ACIST Hand Acist 1 26563 274624 928752 854065 5 Control Medical (53448) Systems Inc ACIST Acist 1 31307 306582 681548 720217 5 Manifold Medical (82978) Systems Inc DIAGNOSTIC Cardinal 1 WH9698 498423 18016 037916 30 Multipack Health 5Fr catheter set (DL5138) EMERALD Cardinal 1 502-455 676714 008080 637641 5 Guide Wire Health (502-455) SHEATH 5FR Terumo 1 DPO165 516792 836092 517874 5 [place] (PGO473) MULTIPACK Cardinal 1 234507 5 JL 4.0 5Fr Health catheter DIAGNOSTIC Cardinal 1 [id number] 716320 550536 264366 5 JL 5 5Fr Health catheter (740333C) MULTIPACK Cardinal 1 220996 5 3DRC 5Fr Health catheter DIAGNOSTIC Cardinal 1 [id number] 682019 904910 966921 5 MPA-2 5Fr Health catheter (069362H) DIAGNOSTIC Cardinal 1 [id number] 203570 726578 806607 20 AR2 MOD 5 Health Fr catheter (791038E) MULTIPACK Cardinal 1 555248 5 Pigtail 5 Health Fr catheter Tegaderm 4 3M 1 1626W 920485 724766 682125 5 x 4 (1626W) EXOSEAL 5Fr Cardinal 1 EX500 720224 853533 178860 10 (EX500) Health Signature Audit [place] Stage Time Signature Unsigned Intra-Procedure 01/30/2021 Robert Quiroz RN 2:42:47 PM Intra-Procedure 01/30/2021 Leilani 2:43:13 PM Counts RT(R) Intra-Procedure 01/30/2021 Cain Paul MD 2:43:43 PM [facility] [address] [place] [address]
[~2021-01-30 12:05] MED LIST changes: -PRAVACHOL20 MG PO; +PRAVASTATIN SOD10 MG PO
[2021-01-30] MEDS ORDERED: GABAPENTIN300 MG PO (12:39)
[2021-01-30] MEDS ORDERED: VITAMIN D325 MC1 PO (12:40)
[2021-01-30] MEDS ORDERED: ARAVA10 MG PO (12:40)
[2021-01-30 12:59] VITALS: BP 143/97; Ht 160 cm; Wt 71.6 kg
[2021-01-30 13:40] LABS: BASOPHILS 0.5 % (0-2); EOSINOPHILS 4.1 % (0-7); HEMATOCRIT 39.1 % (36.0-48.0); HEMOGLOBIN 13.1 g/dL (12-16); IMMATURE GRANULOCYTES 0.2 % (0-5); LYMPHOCYTES 28.8 % (15-50); MCH 27.5 pg (26.0-34.0); MCHC 33.5 g/dL (31.0-37.0); MONOCYTES 7.2 % (2-11); NEUTROPHIL ABS# 2.47 10x3/uL (1.56-6.13); NEUTROPHILS 59.2 % (40-80); RBC 4.77 10x6/uL (4.00-5.40); RDW 15.6 % (11.5-14.5); WBC 4.2 10x3/uL (4.8-10.8)
[2021-01-30 13:44] LABS: PLATELET COUNT 185 10x3/uL (130-400)
[2021-01-30 13:57] LABS: ANION GAP 13.2 mmol/L (8-16); CALCIUM 9.2 mg/dL (8.5-10.1); CHOL - HDL RATIO 3.3 ratio (2.3-4.1); POTASSIUM - SERUM 3.2 mmol/L (3.5-5.1)
--- NOTE | 2021-01-30 14:50 | NUR ---
PT REC'D TO [facility] 3 VIA STRETCHER. MONITORS ESTAB. DAUGHTER AT BS. SEE SAFETY SUPERVISOR FLOWSHEETS. ALARMS ON AND C/L IN REACH.
--- NOTE | 2021-01-30 15:05 | NUR ---
R GROIN SITE SOFT, NO S/S BLEEDING OR HEMATOMA. R LEG/FOOT WARM WITH PALP PULSES AND BRISK CAP REFILL. ALARMS ON AND C/L IN REACH.
--- NOTE | 2021-01-30 15:35 | NUR ---
R GROIN SITE SOFT, NO S/S BLEEDING OR HEMATOMA. PULSES PALP. VSS. PT TOLERATING SIPS OF WATER. ORIENTED TO SITUATION. DAUGHTER AT BS. ALARMS ON AND C/L IN REACH.
--- NOTE | 2021-01-30 15:50 | NUR ---
DR. MOORE IN TO SEE, UPDATE GIVEN AND QUESTIONS ANSWERED, DAUGHTER AT BS. R GROIN SITE SOFT, NO S/S BLEEDING OR HEMATOMA. PULSES PALP. ALARMS ON AND C/L IN REACH.
--- NOTE | 2021-01-30 16:15 | NUR ---
PT RESTING QUIETLY, DENIES PAIN OR NEEDS. R GROIN SITE SOFT, C/D/I. PULSES PALP. VSS. ALARMS ON AND C/L IN REACH.
--- NOTE | 2021-01-30 16:30 | NUR ---
PT INCONT OF LARGE AMT CLEAR URINE - PERICARE AND LINEN CHANGE DONE. PT REOSITIONED UP IN BED, R GROIN SITE SOFT, NO S/S BLEEDING OR HEMATOMA. PULSES PALP. HOB ELEVATED. SANDWICH TRAY AND COLA PROVIDED. DAUGHTER AT BS ASSISTING PT. ALARMS ON AND C/L IN REACH.
--- NOTE | 2021-01-30 16:50 | NUR ---
PT TOLERATED DIET, NO DIFFICULTY NOTED. R GROIN SITE SOFT, NO S/S BLEEDING. VSS.
--- NOTE | 2021-01-30 17:12 | NUR ---
ALL DISCHARGE INSTRUCTIONS REVIEWED WITH PT AND HER DAUGHTER, INCULDING RESTRICTIONS, MEDS AND F/U APPT. BOTH VERBALIZE UNDERSTANDING.
--- NOTE | 2021-01-30 17:14 | NUR ---
PT VOIDED 250ML CLEAR, YELLOW URINE ON BEDPAN. PERICARE PROVIDED. R GROIN SITE SOFT, C/D/I. PIV D/C'D INTACT, DSG APPLIED. PT ALLOWED UP TO GET DRESSED WITH DAUGHTER ASSISTING.
--- NOTE | 2021-01-30 17:26 | NUR ---
PT D/C'D VIA WC TO PRIVATE VEHICLE WITH ALL PAPERWORK AND BELONGINGS.
== END 2021-01-30 17:26 | disposition home or self-care (01) ==
LOC: D.CATH 12:05
PROVIDERS: ATTEND Internal Medicine Cardiovascular Disease
DX: I42.9 Cardiomyopathy, unspecified (principal); I10 Essential (primary) hypertension; R60.0 Localized edema; R06.09 Other forms of dyspnea